=== PATIENT | female | born 1930 | race Caucasian/White ===

== ENCOUNTER → 2016-08-01 | Outpatient (CLI) | payer MEDICARE, OTHER ==
[2016-08-01 11:32] LABS: HEMOGLOBIN 12.8 g/dL (12.0-15.5); HGB HCT DIFFERENCE -0.6; MEAN CORPUSCULAR HEMOGLOBIN 29.5 pg (27.0-33.4); MEAN CORPUSCULAR HGB CONC 32.7 g/dL (32.0-36.0); MEAN CORPUSCULAR VOLUME 90 fl (80-97); RED BLOOD COUNT 4.32 10^6/uL (3.72-5.28); WHITE BLOOD COUNT 6.3 10^3/uL (4.0-10.5)
[2016-08-01 12:16] LABS: APPEARANCE,URINE CLEAR; BILIRUBIN,URINE NEGATIVE (NEGATIVE); GLUCOSE, URINE NEGATIVE (NEGATIVE); KETONES,URINE NEGATIVE (NEGATIVE); LEUKOCYTE ESTERASE,URINE NEGATIVE (NEGATIVE); NITRITE,URINE NEGATIVE (NEGATIVE); PROTEIN,URINE NEGATIVE (NEGATIVE); URINE SPECIFIC GRAVITY 1.011; UROBILINOGEN,URINE NEGATIVE mg/dL (<2.0)
[2016-08-01 12:20] LABS: ANION GAP 10 (5-19); BLOOD UREA NITROGEN 18 mg/dL (7-20); CALCIUM 8.9 mg/dL (8.4-10.2); CARBON DIOXIDE 30 mmol/L (22-30); CHLORIDE 102 mmol/L (98-107); CREATININE RESULT 1.24 mg/dL (0.52-1.25); GLUCOSE 90 mg/dL (75-110); POTASSIUM 4.5 mmol/L (3.6-5.0)
== END ==
LOC: OD 10:19
PROVIDERS: ATTEND Internal Medicine Nephrology
DX: N18.3 Chronic kidney disease, stage 3 (moderate) (principal)
CPT/HCPCS: 36415; 80048; 81001; 85027

== ENCOUNTER 2017-05-21 20:41 | Emergency (ER) | payer MEDICARE, OTHER ==
--- NOTE | 2017-05-21 21:47 | RADIOLOGY REPORT (SQ) ---
EXAM DESCRIPTION: ELBOW RIGHT AP/LAT COMPLETED DATE/TIME: 05/21/2017 9:26 pm REASON FOR STUDY: fall COMPARISON: None. NUMBER OF VIEWS: Two views. TECHNIQUE: AP and lateral radiographic images acquired of the right elbow. LIMITATIONS: None. FINDINGS: MINERALIZATION: Normal. BONES: No acute fracture or dislocation. No worrisome bone lesions. JOINT: No effusion. SOFT TISSUES: Mild soft tissue swelling. No foreign body. OTHER: No other significant finding. IMPRESSION: No fracture. TECHNICAL DOCUMENTATION: JOB ID: [id number] [place]-72 2010 [employer]- All Rights Reserved
--- NOTE | 2017-05-21 21:49 | RADIOLOGY REPORT (SQ) ---
EXAM DESCRIPTION: SHOULDER RIGHT 2 OR MORE VIEWS COMPLETED DATE/TIME: 05/21/2017 9:26 pm REASON FOR STUDY: fall COMPARISON: None. NUMBER OF VIEWS: Three views. TECHNIQUE: Internal rotation, external rotation, and Y view images acquired of the right shoulder. LIMITATIONS: None. FINDINGS: MINERALIZATION: Osteopenia. BONES: No acute fracture or dislocation. No worrisome bone lesions. JOINTS: No dislocation. VISUALIZED LUNGS AND RIBS: No pneumothorax. No rib fracture. SOFT TISSUES: No radiopaque foreign body. OTHER: No other significant finding. IMPRESSION: NO RADIOGRAPHIC EVIDENCE OF ACUTE INJURY. TECHNICAL DOCUMENTATION: JOB ID: [id number] [place]-72 2010 [employer]- All Rights Reserved
--- NOTE | 2017-05-21 22:20 | ER Document Report ---
ED General - General Chief Complaint: Altered Mental Status Stated Complaint: ALTERED MENTAL STATUS Time Seen by Provider: 05/21/17 21:56 Notes: Patient is an 86-year-old female comes emergency department for chief complaint of fall this morning, family also states that she has been acting intermittently confused, they also state that patient can suddenly barely walk when she normally ambulates without any difficulty. Patient denies headache, focal numbness or weakness, she states she does hurt in her right arm area and also in her lower back and side. She states her lower back inside always hurts. She is not on a blood thinner. Patient is not sure why she fell, she is not sure if she lost her balance or if she tripped or if there was another cause. Patient does have a history of some early dementia, hyperlipidemia, patient and caregiver denied any other medical history. She is not on a blood thinner. TRAVEL OUTSIDE OF THE [place] IN LAST 30 DAYS: No - Related Data Allergies/Adverse Reactions: No Known Allergies Allergy (Unverified 05/21/17 20:49) Past Medical History - General Information source: Patient, Relative - Social History Smoking Status: Never Smoker Frequency of alcohol use: None Drug Abuse: None Lives with: Family Family History: Reviewed & Not Pertinent Patient has suicidal ideation: No Patient has homicidal ideation: No Pulmonary Medical History: Reports: Hx COPD Renal/ Medical History: Denies: Hx Peritoneal Dialysis Past Surgical History: Reports: Hx Tubal Ligation - Immunizations Immunizations up to date: Yes Hx Diphtheria, Pertussis, Tetanus Vaccination: Yes Review of Systems - Review of Systems Constitutional: No symptoms reported EENT: No symptoms reported Cardiovascular: No symptoms reported Respiratory: No symptoms reported Gastrointestinal: No symptoms reported Genitourinary: No symptoms reported Female Genitourinary: No symptoms reported Musculoskeletal: See HPI Skin: No symptoms reported Hematologic/Lymphatic: No symptoms reported Neurological/Psychological: See HPI Physical Exam - Vital signs Vitals: Temp Pulse Resp BP Pulse Ox 98.7 F 67 20 117/65 95 05/21/17 21:09 05/21/17 21:09 05/21/17 21:09 05/21/17 21:09 05/21/17 21:09 Interpretation: Normal - General General appearance: Appears well In distress: None - HEENT Head: Normocephalic, Atraumatic Eyes: Normal Pupils: PERRL - Respiratory Respiratory status: No respiratory distress Chest status: Nontender Breath sounds: Normal Chest palpation: Normal - Cardiovascular Rhythm: Regular Heart sounds: Normal auscultation Murmur: No - Abdominal Inspection: Normal Distension: No distension Bowel sounds: Normal Tenderness: Nontender. No: Tender, Guarding Organomegaly: No organomegaly - Back Back: No: Tender, Vertebra tenderness - No midline tenderness, no cellulitis, no signs of trauma - Extremities General upper extremity: Tender - Tender over the right humerus, right elbow, and supraspinatus area of the right shoulder. Range of motion present but appears to be uncomfortable. 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 No obvious deformity or signs of trauma General lower extremity: Tender - Tender over the right posterior hip extending around to the right proximal femoral area. Normal distal neurovascular exam. 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 Chest x-ray with questionable chronic change is otherwise unremarkable. No evidence of orthopedic injury, fracture, dislocation on x- rays. No obvious deformities or traumatic findings on exam, just tenderness and soreness. CBC unremarkable, chemistry unremarkable, cardiac enzymes unremarkable. Urinalysis indicates urinary tract infection with large leukocyte esterase and large amount of white blood cells. Culture placed, giving antibiotics. On my exam patient is oriented, cooperative, alert, cooperates with a normal neurological exam except for when I stand her she has difficulty walking without faltering. 05/22/17 On reevaluation patient stating she wants to go home. She remains alert and well-appearing without any evidence of altered mental status. Vital signs remained unremarkable. Explained concern about whether or not she is steady on her feet. Patient states she has no problem walking, her aide at bedside confirms this. I got patient up again, she got up and ambulated without any difficulty, much improved compared to first attempt. Patient went to the bathroom without any difficulty, demonstrates good balance. No neurological deficits. Patient will be on cephalexin, discussed monitoring, discussed return precautions, patient and [place] understanding and agreement. - Vital Signs Vital signs: Temp Pulse Resp BP Pulse Ox 98.7 F 64 9 L 106/54 L 94 05/21/17 21:09 05/21/17 23:12 05/22/17 01:00 05/22/17 00:32 05/22/17 01:00 - Laboratory Result Diagrams: 05/21/17 23:28 05/21/17 23:28 Laboratory results interpreted by me: 05/21/17 05/21/17 05/21/17 23:12 23:28 23:28 RDW 14.9 H Plt Count 128 L Seg Neutrophils % 36.9 L Lymphocytes % 48.2 H BUN 31 H Creatinine 1.31 H Est GFR ( Amer) 47 L Est GFR (Non-Af Amer) 38 L Glucose 111 H Total Bilirubin 0.1 L Creatine Kinase 162 H Ur Leukocyte Esterase LARGE H Urine Ascorbic Acid 20 H Discharge - Discharge Clinical Impression: Weakness Altered mental status Qualifiers: Altered mental status type: unspecified Qualified Code(s): R41.82 - Altered mental status, unspecified Urinary tract infection Qualifiers: Urinary tract infection type: site unspecified Hematuria presence: without hematuria Qualified Code(s): N39.0 - Urinary tract infection, site not specified Condition: Stable Disposition: HOME, SELF-CARE Additional Instructions: The workup is normal except showing a urinary tract infection. We have a culture growing in the lab, take your antibiotic as prescribed. Follow-up closely with your primary care provider. Return if you worsen including temperature of 100.4 or greater, vomiting, returned or worsening confusion or altered mental status, or any other concerning symptoms. Prescriptions: Cephalexin Monohydrate [Keflex 500 mg Capsule] 500 mg PO BID #14 capsule Referrals: NIKKI VENCES MD [Primary Care Provider] - Follow up as needed
--- NOTE | 2017-05-21 23:23 | RADIOLOGY REPORT (SQ) ---
EXAM DESCRIPTION: CT HEAD WITHOUT CLINICAL HISTORY: 86 years Female, imbalance COMPARISON: None. TECHNIQUE: No contrast. This exam was performed according to our departmental dose-optimization program, which includes automated exposure control, adjustment of the mA and/or kV according to patient size and/or use of iterative reconstruction technique. FINDINGS: Mild cerebral volume loss appropriate for age. No hemorrhage or infarct. No mass, mass effect, or midline shift. Atherosclerosis. Brain and extra-axial structures appear otherwise intact. IMPRESSION: No acute findings.
[2017-05-21 23:30] LABS: APPEARANCE,URINE SLIGHTLY-CLOUDY; BILIRUBIN,URINE NEGATIVE (NEGATIVE); COLOR,URINE YELLOW; GLUCOSE, URINE NEGATIVE (NEGATIVE); KETONES,URINE NEGATIVE (NEGATIVE); LEUKOCYTE ESTERASE,URINE LARGE (NEGATIVE); NITRITE,URINE NEGATIVE (NEGATIVE); PROTEIN,URINE NEGATIVE (NEGATIVE); UROBILINOGEN,URINE NEGATIVE mg/dL (<2.0)
--- NOTE | 2017-05-21 23:40 | RADIOLOGY REPORT (SQ) ---
EXAM DESCRIPTION: CHEST SINGLE VIEW CLINICAL HISTORY: 86 years, Female, weakness COMPARISON: None. NUMBER OF VIEWS: One LIMITATIONS: None. FINDINGS: Moderate interstitial markings. Small biapical scarring. Normal cardiac silhouette. Mild levo convexity. IMPRESSION: Moderate interstitial markings which may indicate chronic interstitial lung disease, pulmonary edema, and/or atypical pneumonitis.
--- NOTE | 2017-05-21 23:41 | RADIOLOGY REPORT (SQ) ---
EXAM DESCRIPTION: HIP RIGHT AP/LATERAL CLINICAL HISTORY: 86 years, Female, fall, pain COMPARISON: None. NUMBER OF VIEWS:2 FINDINGS: Bones, and joints of the right hip appear radiographically intact. Lumbar dextroconvexity and mild lower lumbar disc desiccation. IMPRESSION: No acute findings.
[2017-05-21 23:49] LABS: ABSOLUTE BASOPHILS # (AUTO) 0.1 10^3/uL (0.0-0.2); ABSOLUTE EOSINOPHILS # (AUTO) 0.4 10^3/uL (0.0-0.6); ABSOLUTE LYMPHOCYTES (AUTO) 3.9 10^3/uL (0.5-4.7); ABSOLUTE MONOCYTES (AUTO) 0.7 10^3/uL (0.1-1.4); BASOPHILS % (AUTO) 1.4 % (0-2); EOSINOPHILS % (AUTO) 4.7 % (0-6); HEMATOCRIT 38.2 % (36.0-47.0); HEMOGLOBIN 12.6 g/dL (12.0-15.5); LYMPHOCYTES % (AUTO) 48.2 % (13-45); MEAN CORPUSCULAR HEMOGLOBIN 29.2 pg (27.0-33.4); MEAN CORPUSCULAR HGB CONC 32.9 g/dL (32.0-36.0); MEAN CORPUSCULAR VOLUME 89 fl (80-97); MONOCYTES % (AUTO) 8.8 % (3-13); PLATELET COUNT 128 10^3/uL (150-450); RED BLOOD COUNT 4.31 10^6/uL (3.72-5.28); RED CELL DISTRIBUTION WIDTH 14.9 % (11.5-14.0); SEGMENTED NEUTROPHILS % (AUTO) 36.9 % (42-78); TOTAL CELLS COUNTED % (AUTO) 100 %
[2017-05-21 23:52] LABS: ALANINE AMINOTRANSFERASE 14 U/L (9-52); ALBUMIN 3.9 g/dL (3.5-5.0); ALKALINE PHOSPHATASE 83 U/L (38-126); ANION GAP 10 (5-19); ASPARTATE AMINO TRANSFERASE 28 U/L (14-36); BILIRUBIN,DIRECT 0.1 mg/dL (0.0-0.4); BILIRUBIN,TOTAL 0.1 mg/dL (0.2-1.3); BLOOD UREA NITROGEN 31 mg/dL (7-20); CALCIUM 8.8 mg/dL (8.4-10.2); CARBON DIOXIDE 26 mmol/L (22-30); CHLORIDE 105 mmol/L (98-107); CREATINE KINASE 162 U/L (30-135); GLUCOSE 111 mg/dL (75-110); POTASSIUM 4.1 mmol/L (3.6-5.0); SODIUM 140.9 mmol/L (137-145); TOTAL PROTEIN 6.9 g/dL (6.3-8.2)
[2017-05-22] MEDS ORDERED: CEFTRIAXONE 1 GM/D5W RTU 1 GM/50 ML RTUPB IV ONE (00:10)
[2017-05-22 00:11] LABS: CREATINE KINASE MB < 0.22 ng/mL (<4.55); TROPONIN I < 0.012 ng/mL
[2017-05-22] MEDS ORDERED: CEFTRIAXONE INJ 1000 MG VIAL ONE (00:32)
[2017-05-22 01:34] VITALS: BP 106/54
--- NOTE | 2017-05-22 10:57 | EKG REPORT ---
SEVERITY:- NORMAL ECG - SINUS RHYTHM : Confirmed by: Romie Gross 22-May-2017 10:56:46
== END 2017-05-22 01:34 | disposition home or self-care (01) ==
LOC: ER 20:41
DX: R41.0 Disorientation, unspecified (principal); N39.0 Urinary tract infection, site not specified; R53.1 Weakness; M79.601 Pain in right arm; W19.XXXA Unspecified fall, initial encounter; M54.5 Low back pain; J44.9 Chronic obstructive pulmonary disease, unspecified
CPT/HCPCS: 93005; 99285; 96374; 36415; 82553; 82550; 85025; 80053; 81001; 84484; 71045; 73070; 73502; 73030; 70450; 93010; J0696